=== PATIENT | female | born 1960 | race Caucasian/White ===

== ENCOUNTER 2020-07-24 11:34 | Inpatient (IN) ==
[2020-07-24] MEDS: Gabapentin 300 MG CAPSULE PO SCH ×2 (18:34→21:54)
[2020-07-24] MEDS ORDERED: Insulin DETEMIR 100 UNIT/ML per UNIT SUBQ ONE (21:00)
[2020-07-24] MEDS: Ibuprofen 800 MG TABLET PO PRN (21:52)
[2020-07-24] MEDS: Melatonin 3 MG TABLET PO SCH (21:53)
[2020-07-25 07:00] LABS: Basophils % 0.6 %; Eosinophils # 0.2 K/mcL (0.0-0.6); Eosinophils % 3.4 %; Hematocrit 41.5 % (35.3-44.9); Hemoglobin 13.4 g/dL (11.5-15.4); Immature Granulocytes % 1.6 % (0-4); Lymphocytes # 1.7 K/mcL (0.6-4.6); Lymphocytes % 24.3 %; Mean Corpuscular HGB Conc 32.3 g/dL (31.6-35.5); Mean Corpuscular Volume 92.8 fL (83.0-100.0); Mean Platelet Volume 9.9 fL (9.4-12.4); Monocytes # 0.3 K/mcL (0.0-1.3); Monocytes % 4.4 %; Neutrophils # 4.5 K/mcL (1.6-8.9); Platelet Count 257 K/mcL (140-400); Red Blood Count 4.47 M/mcL (3.82-4.97); Red Cell Distribution Width 14.3 % (11.5-14.5); Segmented Neutrophils % 65.7 %; White Blood Count 6.8 K/mcL (4.3-11.1)
[2020-07-25 07:20] LABS: BUN/Creatinine Ratio 23 (6-26); Blood Urea Nitrogen 18 mg/dL (8-23); Calcium 8.8 mg/dL (8.6-10.3); Carbon Dioxide 31 mEq/L (23-29); Chloride 101 mEq/L (98-107); Glucose 128 mg/dL (70-105); Osmolality,Calculated 292 (280-300); Potassium 4.1 mEq/L (3.5-5.1); Sodium 139 mEq/L (136-145); eGFR For African Americans > 60 (> 60); eGFR For Non-African Americans > 60 (> 60)
[2020-07-25] MEDS ORDERED: predniSONE 20 MG TABLET PO SCH (09:00)
[2020-07-25] MEDS: Gabapentin 300 MG CAPSULE PO SCH ×3 (09:36→20:56)
[2020-07-25] MEDS: amLODIPine 5 MG TABLET PO SCH (09:37)
[2020-07-25] MEDS: Cyanocobalamin (B-12) 1,000 MCG TABLET PO SCH (09:37)
[2020-07-25] MEDS: Furosemide 40 MG TABLET PO SCH (09:37)
[2020-07-25] MEDS: lisinopriL 20 MG TABLET PO SCH (09:37)
[2020-07-25] MEDS: *HR* Metformin 500 MG TABLET PO SCH ×2 (09:37→20:55)
[2020-07-25] MEDS: Cholecalciferol (D-3) 1,000 UNIT (25MCG) TABLET PO SCH (09:38)
[2020-07-25] MEDS: Aspirin Enteric Coated 81 MG Tablet PO SCH (09:38)
[2020-07-25] MEDS: Loratadine 10 MG TABLET PO SCH (09:38)
[2020-07-25] MEDS: FLUoxetine 20 MG CAPSULE PO SCH (09:39)
[2020-07-25] MEDS: Fluticasone Propionate Nasal 50 MCG/SPRAY BOTTLE NS SCH (09:39)
[2020-07-25] MEDS: Insulin DETEMIR 100 UNIT/ML X5UNITS SUBQ SCH ×2 (09:41→21:07)
[2020-07-25] MEDS: Ibuprofen 800 MG TABLET PO PRN (09:41)
[2020-07-25] MEDS ORDERED: *HR* Dextrose 50 % in Water (Vial) 50 ML VIAL IVP PRN (12:18)
[2020-07-25] MEDS ORDERED: Dextrose Gel 15 GM/37.5 ML TUBE PO PRN ×2 (12:18)
[2020-07-25] MEDS ORDERED: D5% in Water 1,000 ML IVC PRN (12:18)
[2020-07-25] MEDS: Insulin LISPRO 300 UNITS/3 ML VIAL SUBQ SCH ×3 (12:34→21:19)
[2020-07-25] MEDS: Nicotine 21 MG PATCH.TD24 TD SCH (16:44)
[2020-07-25] MEDS: Melatonin 3 MG TABLET PO SCH (20:53)
[2020-07-25] MEDS: QUEtiapine Fumarate 25 MG TABLET PO PRN (20:54)
[2020-07-26] MEDS: Ibuprofen 800 MG TABLET PO PRN (08:57)
[2020-07-26] MEDS: FLUoxetine 20 MG CAPSULE PO SCH (08:57)
[2020-07-26] MEDS: Loratadine 10 MG TABLET PO SCH (08:57)
[2020-07-26] MEDS: Cholecalciferol (D-3) 1,000 UNIT (25MCG) TABLET PO SCH (08:57)
[2020-07-26] MEDS: Cyanocobalamin (B-12) 1,000 MCG TABLET PO SCH (08:58)
[2020-07-26] MEDS: Furosemide 40 MG TABLET PO SCH (08:58)
[2020-07-26] MEDS: Aspirin Enteric Coated 81 MG Tablet PO SCH (08:58)
[2020-07-26] MEDS: *HR* Metformin 500 MG TABLET PO SCH ×2 (08:58→21:55)
[2020-07-26] MEDS: Gabapentin 300 MG CAPSULE PO SCH ×3 (08:58→21:54)
[2020-07-26] MEDS: amLODIPine 5 MG TABLET PO SCH (08:58)
[2020-07-26] MEDS: lisinopriL 20 MG TABLET PO SCH (08:58)
[2020-07-26] MEDS: Fluticasone Propionate Nasal 50 MCG/SPRAY BOTTLE NS SCH (08:59)
[2020-07-26] MEDS: Insulin LISPRO 300 UNITS/3 ML VIAL SUBQ SCH ×4 (08:59→22:07)
[2020-07-26] MEDS: Insulin DETEMIR 100 UNIT/ML X5UNITS SUBQ SCH ×2 (09:02→21:56)
[2020-07-26] MEDS: Nicotine 21 MG PATCH.TD24 TD SCH (09:18)
[2020-07-26] MEDS: Melatonin 3 MG TABLET PO SCH (21:54)
[2020-07-26] MEDS: QUEtiapine Fumarate 25 MG TABLET PO PRN (21:55)
[2020-07-27] MEDS: Ibuprofen 800 MG TABLET PO PRN (04:23)
[2020-07-27] MEDS: Insulin LISPRO 300 UNITS/3 ML VIAL SUBQ SCH ×4 (08:08→20:36)
[2020-07-27] MEDS: *HR* Metformin 500 MG TABLET PO SCH ×2 (08:09→17:39)
[2020-07-27] MEDS: Fluticasone Propionate Nasal 50 MCG/SPRAY BOTTLE NS SCH (08:09)
[2020-07-27] MEDS: Loratadine 10 MG TABLET PO SCH (08:10)
[2020-07-27] MEDS: Aspirin Enteric Coated 81 MG Tablet PO SCH (08:10)
[2020-07-27] MEDS: FLUoxetine 20 MG CAPSULE PO SCH (08:10)
[2020-07-27] MEDS: Cholecalciferol (D-3) 1,000 UNIT (25MCG) TABLET PO SCH (08:10)
[2020-07-27] MEDS: amLODIPine 5 MG TABLET PO SCH (08:10)
[2020-07-27] MEDS: lisinopriL 20 MG TABLET PO SCH (08:10)
[2020-07-27] MEDS: Cyanocobalamin (B-12) 1,000 MCG TABLET PO SCH (08:10)
[2020-07-27] MEDS: Gabapentin 300 MG CAPSULE PO SCH ×3 (08:10→20:37)
[2020-07-27] MEDS: Furosemide 40 MG TABLET PO SCH (08:10)
[2020-07-27] MEDS: Insulin DETEMIR 100 UNIT/ML X5UNITS SUBQ SCH ×2 (08:12→20:38)
[2020-07-27] MEDS: Nicotine 21 MG PATCH.TD24 TD SCH (08:14)
[2020-07-27] MEDS: (Dulaglutide [Trulicity] 1.5 MG/0.5 ML Pen.Injctr) SQ SCH (08:25)
[2020-07-27] MEDS: polyethylene glycoL 3350 17 GM POWD.PACK PO PRN (17:43)
[2020-07-27] MEDS: QUEtiapine Fumarate 25 MG TABLET PO PRN (20:37)
[2020-07-27] MEDS: Melatonin 3 MG TABLET PO SCH (20:37)
[2020-07-28] MEDS: Ibuprofen 800 MG TABLET PO PRN ×2 (06:31→20:43)
[2020-07-28] MEDS: Insulin LISPRO 300 UNITS/3 ML VIAL SUBQ SCH ×4 (08:03→20:32)
[2020-07-28] MEDS: Loratadine 10 MG TABLET PO SCH (08:04)
[2020-07-28] MEDS: *HR* Metformin 500 MG TABLET PO SCH ×2 (08:04→16:09)
[2020-07-28] MEDS: Gabapentin 300 MG CAPSULE PO SCH ×3 (08:04→20:35)
[2020-07-28] MEDS: Cyanocobalamin (B-12) 1,000 MCG TABLET PO SCH (08:05)
[2020-07-28] MEDS: Aspirin Enteric Coated 81 MG Tablet PO SCH (08:05)
[2020-07-28] MEDS: amLODIPine 5 MG TABLET PO SCH (08:05)
[2020-07-28] MEDS: Furosemide 40 MG TABLET PO SCH (08:05)
[2020-07-28] MEDS: FLUoxetine 20 MG CAPSULE PO SCH (08:05)
[2020-07-28] MEDS: Cholecalciferol (D-3) 1,000 UNIT (25MCG) TABLET PO SCH (08:05)
[2020-07-28] MEDS: lisinopriL 20 MG TABLET PO SCH (08:05)
[2020-07-28] MEDS: Fluticasone Propionate Nasal 50 MCG/SPRAY BOTTLE NS SCH (08:06)
[2020-07-28] MEDS: Insulin DETEMIR 100 UNIT/ML X5UNITS SUBQ SCH ×2 (08:45→20:36)
[2020-07-28] MEDS: polyethylene glycoL 3350 17 GM POWD.PACK PO PRN (14:32)
[2020-07-28] MEDS: QUEtiapine Fumarate 25 MG TABLET PO PRN (20:36)
[2020-07-28] MEDS: Melatonin 3 MG TABLET PO SCH (20:36)
[2020-07-29] MEDS: Cyanocobalamin (B-12) 1,000 MCG TABLET PO SCH (08:51)
[2020-07-29] MEDS: *HR* Metformin 500 MG TABLET PO SCH ×2 (08:51→16:56)
[2020-07-29] MEDS: Cholecalciferol (D-3) 1,000 UNIT (25MCG) TABLET PO SCH (08:51)
[2020-07-29] MEDS: Aspirin Enteric Coated 81 MG Tablet PO SCH (08:51)
[2020-07-29] MEDS: Gabapentin 300 MG CAPSULE PO SCH ×3 (08:52→21:23)
[2020-07-29] MEDS: FLUoxetine 20 MG CAPSULE PO SCH (08:53)
[2020-07-29] MEDS: amLODIPine 5 MG TABLET PO SCH (08:54)
[2020-07-29] MEDS: Fluticasone Propionate Nasal 50 MCG/SPRAY BOTTLE NS SCH (08:54)
[2020-07-29] MEDS: Furosemide 40 MG TABLET PO SCH (08:54)
[2020-07-29] MEDS: lisinopriL 20 MG TABLET PO SCH (08:55)
[2020-07-29] MEDS: Insulin LISPRO 300 UNITS/3 ML VIAL SUBQ SCH ×4 (08:57→21:14)
[2020-07-29] MEDS: Insulin DETEMIR 100 UNIT/ML X5UNITS SUBQ SCH ×2 (08:58→21:25)
[2020-07-29] MEDS: Loratadine 10 MG TABLET PO SCH (09:18)
[2020-07-29] MEDS: Ibuprofen 800 MG TABLET PO PRN (15:53)
[2020-07-29] MEDS ORDERED: Sennosides/Docusate Sodium TABLET PO PRN (18:12)
[2020-07-29] MEDS: QUEtiapine Fumarate 25 MG TABLET PO PRN (21:22)
[2020-07-29] MEDS: Melatonin 3 MG TABLET PO SCH (21:23)
[2020-07-29] MEDS: Sennosides/Docusate Sodium TABLET PO SCH (21:23)
[2020-07-30] MEDS: Sennosides/Docusate Sodium TABLET PO SCH ×2 (08:06→21:35)
[2020-07-30] MEDS: Loratadine 10 MG TABLET PO SCH (08:07)
[2020-07-30] MEDS: *HR* Metformin 500 MG TABLET PO SCH ×2 (08:07→16:55)
[2020-07-30] MEDS: Aspirin Enteric Coated 81 MG Tablet PO SCH (08:07)
[2020-07-30] MEDS: FLUoxetine 20 MG CAPSULE PO SCH (08:07)
[2020-07-30] MEDS: lisinopriL 20 MG TABLET PO SCH (08:08)
[2020-07-30] MEDS: Furosemide 40 MG TABLET PO SCH (08:08)
[2020-07-30] MEDS: Gabapentin 300 MG CAPSULE PO SCH ×3 (08:08→21:36)
[2020-07-30] MEDS: Cholecalciferol (D-3) 1,000 UNIT (25MCG) TABLET PO SCH (08:08)
[2020-07-30] MEDS: amLODIPine 5 MG TABLET PO SCH (08:08)
[2020-07-30] MEDS: Cyanocobalamin (B-12) 1,000 MCG TABLET PO SCH (08:09)
[2020-07-30] MEDS: Fluticasone Propionate Nasal 50 MCG/SPRAY BOTTLE NS SCH (08:10)
[2020-07-30] MEDS: Insulin DETEMIR 100 UNIT/ML X5UNITS SUBQ SCH ×2 (08:12→21:43)
[2020-07-30] MEDS: Insulin LISPRO 300 UNITS/3 ML VIAL SUBQ SCH ×4 (08:13→21:37)
[2020-07-30] MEDS: Ibuprofen 800 MG TABLET PO PRN (09:43)
[2020-07-30] MEDS: Melatonin 3 MG TABLET PO SCH (21:36)
[2020-07-30] MEDS: QUEtiapine Fumarate 25 MG TABLET PO PRN (21:36)
[2020-07-31] MEDS: Ibuprofen 800 MG TABLET PO PRN ×2 (03:14→12:03)
[2020-07-31] MEDS: Insulin LISPRO 300 UNITS/3 ML VIAL SUBQ SCH ×4 (07:07→21:28)
[2020-07-31] MEDS: lisinopriL 20 MG TABLET PO SCH (08:34)
[2020-07-31] MEDS: Sennosides/Docusate Sodium TABLET PO SCH ×2 (08:35→21:33)
[2020-07-31] MEDS: Cyanocobalamin (B-12) 1,000 MCG TABLET PO SCH (08:35)
[2020-07-31] MEDS: FLUoxetine 20 MG CAPSULE PO SCH (08:35)
[2020-07-31] MEDS: Cholecalciferol (D-3) 1,000 UNIT (25MCG) TABLET PO SCH (08:35)
[2020-07-31] MEDS: amLODIPine 5 MG TABLET PO SCH (08:35)
[2020-07-31] MEDS: Furosemide 40 MG TABLET PO SCH (08:35)
[2020-07-31] MEDS: *HR* Metformin 500 MG TABLET PO SCH ×2 (08:35→17:04)
[2020-07-31] MEDS: Fluticasone Propionate Nasal 50 MCG/SPRAY BOTTLE NS SCH (08:36)
[2020-07-31] MEDS: Aspirin Enteric Coated 81 MG Tablet PO SCH (08:36)
[2020-07-31] MEDS: Loratadine 10 MG TABLET PO SCH (08:36)
[2020-07-31] MEDS: Gabapentin 300 MG CAPSULE PO SCH ×3 (08:36→21:21)
[2020-07-31] MEDS: Insulin DETEMIR 100 UNIT/ML X5UNITS SUBQ SCH ×2 (08:43→21:27)
[2020-07-31] MEDS: Melatonin 3 MG TABLET PO SCH (21:21)
[2020-07-31] MEDS: QUEtiapine Fumarate 25 MG TABLET PO PRN (21:22)
[2020-08-01] MEDS: Ibuprofen 800 MG TABLET PO PRN (00:12)
[2020-08-01] MEDS ORDERED: *HR* HYDROcodone/Acet 5/325 mg TABLET PO ONE (04:17)
[2020-08-01] MEDS: Insulin LISPRO 300 UNITS/3 ML VIAL SUBQ SCH ×4 (07:50→20:40)
[2020-08-01] MEDS: FLUoxetine 20 MG CAPSULE PO SCH (08:22)
[2020-08-01] MEDS: Sennosides/Docusate Sodium TABLET PO SCH ×2 (08:23→20:51)
[2020-08-01] MEDS: *HR* Metformin 500 MG TABLET PO SCH ×2 (08:23→16:41)
[2020-08-01] MEDS: Furosemide 40 MG TABLET PO SCH (08:23)
[2020-08-01] MEDS: Aspirin Enteric Coated 81 MG Tablet PO SCH (08:23)
[2020-08-01] MEDS: Cholecalciferol (D-3) 1,000 UNIT (25MCG) TABLET PO SCH (08:23)
[2020-08-01] MEDS: lisinopriL 20 MG TABLET PO SCH (08:23)
[2020-08-01] MEDS: Loratadine 10 MG TABLET PO SCH (08:24)
[2020-08-01] MEDS: Cyanocobalamin (B-12) 1,000 MCG TABLET PO SCH (08:24)
[2020-08-01] MEDS: amLODIPine 5 MG TABLET PO SCH (08:24)
[2020-08-01] MEDS: Insulin DETEMIR 100 UNIT/ML X5UNITS SUBQ SCH ×2 (08:24→20:53)
[2020-08-01] MEDS: Gabapentin 300 MG CAPSULE PO SCH ×3 (08:24→20:51)
[2020-08-01] MEDS: Fluticasone Propionate Nasal 50 MCG/SPRAY BOTTLE NS SCH (08:25)
[2020-08-01] MEDS: Melatonin 3 MG TABLET PO SCH (20:51)
[2020-08-02] MEDS: Ibuprofen 800 MG TABLET PO PRN (02:55)
[2020-08-02] MEDS: lisinopriL 20 MG TABLET PO SCH (07:36)
[2020-08-02] MEDS: Aspirin Enteric Coated 81 MG Tablet PO SCH (07:36)
[2020-08-02] MEDS: Sennosides/Docusate Sodium TABLET PO SCH ×2 (07:36→20:43)
[2020-08-02] MEDS: Loratadine 10 MG TABLET PO SCH (07:36)
[2020-08-02] MEDS: Gabapentin 300 MG CAPSULE PO SCH ×3 (07:36→20:43)
[2020-08-02] MEDS: Cholecalciferol (D-3) 1,000 UNIT (25MCG) TABLET PO SCH (07:36)
[2020-08-02] MEDS: amLODIPine 5 MG TABLET PO SCH (07:36)
[2020-08-02] MEDS: FLUoxetine 20 MG CAPSULE PO SCH (07:36)
[2020-08-02] MEDS: *HR* Metformin 500 MG TABLET PO SCH ×2 (07:36→16:09)
[2020-08-02] MEDS: Insulin LISPRO 300 UNITS/3 ML VIAL SUBQ SCH ×4 (07:37→20:43)
[2020-08-02] MEDS: Cyanocobalamin (B-12) 1,000 MCG TABLET PO SCH (07:37)
[2020-08-02] MEDS: Fluticasone Propionate Nasal 50 MCG/SPRAY BOTTLE NS SCH (07:37)
[2020-08-02] MEDS: Furosemide 40 MG TABLET PO SCH (07:37)
[2020-08-02] MEDS: Insulin DETEMIR 100 UNIT/ML X5UNITS SUBQ SCH ×2 (08:44→20:43)
[2020-08-02] MEDS: Melatonin 3 MG TABLET PO SCH (20:44)
[2020-08-03] MEDS: Ibuprofen 800 MG TABLET PO PRN ×2 (01:43→20:01)
[2020-08-03] MEDS ORDERED: *HR* HYDROcodone/Acet 5/325 mg TABLET PO ONE (03:14)
[2020-08-03] MEDS: Aspirin Enteric Coated 81 MG Tablet PO SCH (07:47)
[2020-08-03] MEDS: Cholecalciferol (D-3) 1,000 UNIT (25MCG) TABLET PO SCH (07:47)
[2020-08-03] MEDS: FLUoxetine 20 MG CAPSULE PO SCH (07:48)
[2020-08-03] MEDS: *HR* Metformin 500 MG TABLET PO SCH ×2 (07:48→16:24)
[2020-08-03] MEDS: amLODIPine 5 MG TABLET PO SCH (07:48)
[2020-08-03] MEDS: Loratadine 10 MG TABLET PO SCH (07:48)
[2020-08-03] MEDS: lisinopriL 20 MG TABLET PO SCH (07:48)
[2020-08-03] MEDS: Gabapentin 300 MG CAPSULE PO SCH ×3 (07:48→20:02)
[2020-08-03] MEDS: Sennosides/Docusate Sodium TABLET PO SCH ×2 (07:48→20:02)
[2020-08-03] MEDS: Furosemide 40 MG TABLET PO SCH (07:48)
[2020-08-03] MEDS: Cyanocobalamin (B-12) 1,000 MCG TABLET PO SCH (07:48)
[2020-08-03] MEDS: Fluticasone Propionate Nasal 50 MCG/SPRAY BOTTLE NS SCH (07:49)
[2020-08-03] MEDS: Insulin LISPRO 300 UNITS/3 ML VIAL SUBQ SCH ×4 (07:49→20:08)
[2020-08-03] MEDS: (Dulaglutide [Trulicity] 1.5 MG/0.5 ML Pen.Injctr) SQ SCH (07:56)
[2020-08-03] MEDS: Insulin DETEMIR 100 UNIT/ML X5UNITS SUBQ SCH ×2 (08:16→20:10)
[2020-08-03] MEDS: Ondansetron ODT 4 MG TAB.RAPDIS SL PRN (11:40)
[2020-08-03] MEDS: Melatonin 3 MG TABLET PO SCH (20:02)
[2020-08-04] MEDS: Insulin LISPRO 300 UNITS/3 ML VIAL SUBQ SCH ×4 (08:20→22:13)
[2020-08-04] MEDS: FLUoxetine 20 MG CAPSULE PO SCH (08:20)
[2020-08-04] MEDS: *HR* Metformin 500 MG TABLET PO SCH ×2 (08:21→16:48)
[2020-08-04] MEDS: Cholecalciferol (D-3) 1,000 UNIT (25MCG) TABLET PO SCH (08:21)
[2020-08-04] MEDS: Sennosides/Docusate Sodium TABLET PO SCH ×2 (08:21→20:53)
[2020-08-04] MEDS: Cyanocobalamin (B-12) 1,000 MCG TABLET PO SCH (08:21)
[2020-08-04] MEDS: amLODIPine 5 MG TABLET PO SCH (08:21)
[2020-08-04] MEDS: Loratadine 10 MG TABLET PO SCH (08:22)
[2020-08-04] MEDS: Fluticasone Propionate Nasal 50 MCG/SPRAY BOTTLE NS SCH (08:22)
[2020-08-04] MEDS: Furosemide 40 MG TABLET PO SCH (08:22)
[2020-08-04] MEDS: Aspirin Enteric Coated 81 MG Tablet PO SCH (08:22)
[2020-08-04] MEDS: lisinopriL 20 MG TABLET PO SCH (08:22)
[2020-08-04] MEDS: Gabapentin 300 MG CAPSULE PO SCH ×3 (08:22→20:53)
[2020-08-04] MEDS: Insulin DETEMIR 100 UNIT/ML X5UNITS SUBQ SCH ×2 (09:05→20:53)
[2020-08-04] MEDS: Ibuprofen 800 MG TABLET PO PRN (20:53)
[2020-08-04] MEDS: Melatonin 3 MG TABLET PO SCH (20:53)
[2020-08-05] MEDS: Ibuprofen 800 MG TABLET PO PRN ×2 (05:13→20:34)
[2020-08-05 06:08] LABS: Basophils % 0.4 %; Eosinophils # 0.3 K/mcL (0.0-0.6); Eosinophils % 3.3 %; Hematocrit 39.7 % (35.3-44.9); Immature Granulocytes % 0.3 % (0-4); Lymphocytes % 32.6 %; Mean Corpuscular HGB Conc 32.7 g/dL (31.6-35.5); Mean Corpuscular Hemoglobin 30.4 pg (28.0-33.3); Mean Platelet Volume 10.2 fL (9.4-12.4); Monocytes # 0.4 K/mcL (0.0-1.3); Monocytes % 3.9 %; Neutrophils # 5.4 K/mcL (1.6-8.9); Platelet Count 300 K/mcL (140-400); Red Blood Count 4.27 M/mcL (3.82-4.97); Red Cell Distribution Width 14.7 % (11.5-14.5); Segmented Neutrophils % 59.5 %; White Blood Count 9.1 K/mcL (4.3-11.1)
[2020-08-05 06:25] LABS: Calcium 9.3 mg/dL (8.6-10.3); Potassium 4.2 mEq/L (3.5-5.1)
[2020-08-05] MEDS: FLUoxetine 20 MG CAPSULE PO SCH (08:29)
[2020-08-05] MEDS: Sennosides/Docusate Sodium TABLET PO SCH ×2 (08:29→20:25)
[2020-08-05] MEDS: amLODIPine 5 MG TABLET PO SCH (08:29)
[2020-08-05] MEDS: Gabapentin 300 MG CAPSULE PO SCH ×3 (08:29→20:26)
[2020-08-05] MEDS: Loratadine 10 MG TABLET PO SCH (08:29)
[2020-08-05] MEDS: Cyanocobalamin (B-12) 1,000 MCG TABLET PO SCH (08:29)
[2020-08-05] MEDS: Aspirin Enteric Coated 81 MG Tablet PO SCH (08:29)
[2020-08-05] MEDS: *HR* Metformin 500 MG TABLET PO SCH ×2 (08:30→16:32)
[2020-08-05] MEDS: Fluticasone Propionate Nasal 50 MCG/SPRAY BOTTLE NS SCH (08:30)
[2020-08-05] MEDS: Insulin DETEMIR 100 UNIT/ML X5UNITS SUBQ SCH ×2 (08:30→20:26)
[2020-08-05] MEDS: lisinopriL 20 MG TABLET PO SCH (08:30)
[2020-08-05] MEDS: Cholecalciferol (D-3) 1,000 UNIT (25MCG) TABLET PO SCH (08:30)
[2020-08-05] MEDS: Furosemide 40 MG TABLET PO SCH (08:30)
[2020-08-05] MEDS: Insulin LISPRO 300 UNITS/3 ML VIAL SUBQ SCH ×4 (08:31→20:26)
[2020-08-05] MEDS: Melatonin 3 MG TABLET PO SCH (20:25)
[2020-08-06] MEDS: Insulin LISPRO 300 UNITS/3 ML VIAL SUBQ SCH ×4 (07:49→20:38)
[2020-08-06] MEDS: Ibuprofen 800 MG TABLET PO PRN ×2 (08:02→20:39)
[2020-08-06] MEDS: Furosemide 40 MG TABLET PO SCH (08:02)
[2020-08-06] MEDS: Sennosides/Docusate Sodium TABLET PO SCH ×2 (08:02→20:39)
[2020-08-06] MEDS: Gabapentin 300 MG CAPSULE PO SCH ×3 (08:02→20:39)
[2020-08-06] MEDS: Aspirin Enteric Coated 81 MG Tablet PO SCH (08:02)
[2020-08-06] MEDS: lisinopriL 20 MG TABLET PO SCH (08:02)
[2020-08-06] MEDS: Loratadine 10 MG TABLET PO SCH (08:03)
[2020-08-06] MEDS: Cholecalciferol (D-3) 1,000 UNIT (25MCG) TABLET PO SCH (08:03)
[2020-08-06] MEDS: Insulin DETEMIR 100 UNIT/ML X5UNITS SUBQ SCH ×2 (08:03→20:38)
[2020-08-06] MEDS: *HR* Metformin 500 MG TABLET PO SCH ×2 (08:03→17:11)
[2020-08-06] MEDS: Cyanocobalamin (B-12) 1,000 MCG TABLET PO SCH (08:03)
[2020-08-06] MEDS: FLUoxetine 20 MG CAPSULE PO SCH (08:03)
[2020-08-06] MEDS: amLODIPine 5 MG TABLET PO SCH (08:03)
[2020-08-06] MEDS: Fluticasone Propionate Nasal 50 MCG/SPRAY BOTTLE NS SCH (08:03)
[2020-08-06] MEDS: Melatonin 3 MG TABLET PO SCH (20:40)
[2020-08-07] MEDS: Cholecalciferol (D-3) 1,000 UNIT (25MCG) TABLET PO SCH (08:27)
[2020-08-07] MEDS: Sennosides/Docusate Sodium TABLET PO SCH ×2 (08:27→20:25)
[2020-08-07] MEDS: Aspirin Enteric Coated 81 MG Tablet PO SCH (08:27)
[2020-08-07] MEDS: Cyanocobalamin (B-12) 1,000 MCG TABLET PO SCH (08:27)
[2020-08-07] MEDS: Loratadine 10 MG TABLET PO SCH (08:27)
[2020-08-07] MEDS: lisinopriL 20 MG TABLET PO SCH (08:27)
[2020-08-07] MEDS: amLODIPine 5 MG TABLET PO SCH (08:27)
[2020-08-07] MEDS: Gabapentin 300 MG CAPSULE PO SCH ×3 (08:27→20:25)
[2020-08-07] MEDS: FLUoxetine 20 MG CAPSULE PO SCH (08:27)
[2020-08-07] MEDS: Furosemide 40 MG TABLET PO SCH (08:27)
[2020-08-07] MEDS: Insulin LISPRO 300 UNITS/3 ML VIAL SUBQ SCH ×4 (08:28→20:27)
[2020-08-07] MEDS: Fluticasone Propionate Nasal 50 MCG/SPRAY BOTTLE NS SCH (08:28)
[2020-08-07] MEDS: *HR* Metformin 500 MG TABLET PO SCH ×2 (08:35→16:16)
[2020-08-07] MEDS: Insulin DETEMIR 100 UNIT/ML X5UNITS SUBQ SCH ×2 (08:35→20:25)
[2020-08-07] MEDS ORDERED: *HR* LORazepam 0.5 MG TABLET PO ONE (10:52)
[2020-08-07] MEDS: Ibuprofen 800 MG TABLET PO PRN (20:25)
[2020-08-07] MEDS: Melatonin 3 MG TABLET PO SCH (20:25)
[2020-08-08] MEDS: Insulin LISPRO 300 UNITS/3 ML VIAL SUBQ SCH ×4 (07:39→20:54)
[2020-08-08] MEDS: Insulin DETEMIR 100 UNIT/ML X5UNITS SUBQ SCH ×2 (09:42→20:54)
[2020-08-08] MEDS: Furosemide 40 MG TABLET PO SCH (09:42)
[2020-08-08] MEDS: Cholecalciferol (D-3) 1,000 UNIT (25MCG) TABLET PO SCH (09:43)
[2020-08-08] MEDS: Sennosides/Docusate Sodium TABLET PO SCH ×2 (09:43→20:50)
[2020-08-08] MEDS: FLUoxetine 20 MG CAPSULE PO SCH (09:43)
[2020-08-08] MEDS: Loratadine 10 MG TABLET PO SCH (09:43)
[2020-08-08] MEDS: lisinopriL 20 MG TABLET PO SCH (09:43)
[2020-08-08] MEDS: amLODIPine 5 MG TABLET PO SCH (09:43)
[2020-08-08] MEDS: *HR* Metformin 500 MG TABLET PO SCH ×2 (09:44→17:24)
[2020-08-08] MEDS: Ibuprofen 800 MG TABLET PO PRN ×2 (09:44→20:51)
[2020-08-08] MEDS: Aspirin Enteric Coated 81 MG Tablet PO SCH (09:44)
[2020-08-08] MEDS: Cyanocobalamin (B-12) 1,000 MCG TABLET PO SCH (09:44)
[2020-08-08] MEDS: Gabapentin 300 MG CAPSULE PO SCH ×3 (09:44→20:50)
[2020-08-08] MEDS: Fluticasone Propionate Nasal 50 MCG/SPRAY BOTTLE NS SCH (09:44)
[2020-08-08] MEDS: Melatonin 3 MG TABLET PO SCH (20:50)
[2020-08-08] MEDS: QUEtiapine Fumarate 25 MG TABLET PO PRN (20:51)
[2020-08-09 05:43] LABS: Hematocrit 35.1 % (35.3-44.9); Hemoglobin 11.5 g/dL (11.5-15.4); Mean Corpuscular HGB Conc 32.8 g/dL (31.6-35.5); Mean Corpuscular Hemoglobin 30.5 pg (28.0-33.3); Mean Corpuscular Volume 93.1 fL (83.0-100.0); Mean Platelet Volume 10.5 fL (9.4-12.4); Platelet Count 264 K/mcL (140-400); Red Blood Count 3.77 M/mcL (3.82-4.97); Red Cell Distribution Width 14.5 % (11.5-14.5); White Blood Count 8.3 K/mcL (4.3-11.1)
[2020-08-09 07:10] LABS: Calcium 8.8 mg/dL (8.6-10.3); Potassium 4.2 mEq/L (3.5-5.1)
[2020-08-09] MEDS: Insulin LISPRO 300 UNITS/3 ML VIAL SUBQ SCH ×4 (07:35→21:18)
[2020-08-09] MEDS: Fluticasone Propionate Nasal 50 MCG/SPRAY BOTTLE NS SCH (08:47)
[2020-08-09] MEDS: Furosemide 40 MG TABLET PO SCH (08:48)
[2020-08-09] MEDS: Loratadine 10 MG TABLET PO SCH (08:48)
[2020-08-09] MEDS: lisinopriL 20 MG TABLET PO SCH (08:48)
[2020-08-09] MEDS: Aspirin Enteric Coated 81 MG Tablet PO SCH (08:48)
[2020-08-09] MEDS: *HR* Metformin 500 MG TABLET PO SCH ×2 (08:48→16:49)
[2020-08-09] MEDS: Cyanocobalamin (B-12) 1,000 MCG TABLET PO SCH (08:48)
[2020-08-09] MEDS: Cholecalciferol (D-3) 1,000 UNIT (25MCG) TABLET PO SCH (08:48)
[2020-08-09] MEDS: amLODIPine 5 MG TABLET PO SCH (08:48)
[2020-08-09] MEDS: FLUoxetine 20 MG CAPSULE PO SCH (08:48)
[2020-08-09] MEDS: Sennosides/Docusate Sodium TABLET PO SCH ×2 (08:49→21:17)
[2020-08-09] MEDS: Gabapentin 300 MG CAPSULE PO SCH ×3 (08:49→21:17)
[2020-08-09] MEDS: Ibuprofen 800 MG TABLET PO PRN ×2 (09:00→21:17)
[2020-08-09] MEDS: Insulin DETEMIR 100 UNIT/ML X5UNITS SUBQ SCH ×2 (10:02→21:18)
[2020-08-09] MEDS: Melatonin 3 MG TABLET PO SCH (21:17)
[2020-08-10] MEDS: Trolamine Salicylate/Aloe Vera 85 APPL/85 GM TUBE TP PRN (02:22)
[2020-08-10] MEDS: amLODIPine 5 MG TABLET PO SCH (08:24)
[2020-08-10] MEDS: Sennosides/Docusate Sodium TABLET PO SCH ×2 (08:24→20:47)
[2020-08-10] MEDS: *HR* Metformin 500 MG TABLET PO SCH ×2 (08:25→16:07)
[2020-08-10] MEDS: lisinopriL 20 MG TABLET PO SCH (08:25)
[2020-08-10] MEDS: FLUoxetine 20 MG CAPSULE PO SCH (08:25)
[2020-08-10] MEDS: Furosemide 40 MG TABLET PO SCH (08:25)
[2020-08-10] MEDS: Aspirin Enteric Coated 81 MG Tablet PO SCH (08:25)
[2020-08-10] MEDS: Cyanocobalamin (B-12) 1,000 MCG TABLET PO SCH (08:25)
[2020-08-10] MEDS: Loratadine 10 MG TABLET PO SCH (08:25)
[2020-08-10] MEDS: Cholecalciferol (D-3) 1,000 UNIT (25MCG) TABLET PO SCH (08:26)
[2020-08-10] MEDS: Fluticasone Propionate Nasal 50 MCG/SPRAY BOTTLE NS SCH (08:26)
[2020-08-10] MEDS: Insulin DETEMIR 100 UNIT/ML X5UNITS SUBQ SCH ×2 (08:26→20:49)
[2020-08-10] MEDS: Gabapentin 300 MG CAPSULE PO SCH ×3 (08:26→20:48)
[2020-08-10] MEDS: Ibuprofen 800 MG TABLET PO PRN ×2 (08:26→20:48)
[2020-08-10] MEDS: Insulin LISPRO 300 UNITS/3 ML VIAL SUBQ SCH ×4 (08:27→20:40)
[2020-08-10] MEDS: (Dulaglutide [Trulicity] 1.5 MG/0.5 ML Pen.Injctr) SQ SCH (08:35)
[2020-08-10] MEDS: Melatonin 3 MG TABLET PO SCH (20:48)
[2020-08-10] MEDS: QUEtiapine Fumarate 25 MG TABLET PO PRN (20:48)
[2020-08-11] MEDS: Ibuprofen 800 MG TABLET PO PRN ×2 (05:36→16:03)
[2020-08-11] MEDS: Trolamine Salicylate/Aloe Vera 85 APPL/85 GM TUBE TP PRN (05:38)
[2020-08-11] MEDS: Insulin LISPRO 300 UNITS/3 ML VIAL SUBQ SCH ×4 (08:38→20:46)
[2020-08-11] MEDS: amLODIPine 5 MG TABLET PO SCH (09:10)
[2020-08-11] MEDS: Gabapentin 300 MG CAPSULE PO SCH ×3 (09:10→20:40)
[2020-08-11] MEDS: FLUoxetine 20 MG CAPSULE PO SCH (09:10)
[2020-08-11] MEDS: Cyanocobalamin (B-12) 1,000 MCG TABLET PO SCH (09:10)
[2020-08-11] MEDS: lisinopriL 20 MG TABLET PO SCH (09:10)
[2020-08-11] MEDS: Cholecalciferol (D-3) 1,000 UNIT (25MCG) TABLET PO SCH (09:10)
[2020-08-11] MEDS: Furosemide 40 MG TABLET PO SCH (09:11)
[2020-08-11] MEDS: Aspirin Enteric Coated 81 MG Tablet PO SCH (09:11)
[2020-08-11] MEDS: Loratadine 10 MG TABLET PO SCH (09:11)
[2020-08-11] MEDS: *HR* Metformin 500 MG TABLET PO SCH ×2 (09:11→16:03)
[2020-08-11] MEDS: Fluticasone Propionate Nasal 50 MCG/SPRAY BOTTLE NS SCH (09:11)
[2020-08-11] MEDS: Sennosides/Docusate Sodium TABLET PO SCH ×2 (09:11→20:40)
[2020-08-11] MEDS: Insulin DETEMIR 100 UNIT/ML X5UNITS SUBQ SCH ×2 (09:18→20:44)
[2020-08-11] MEDS: Melatonin 3 MG TABLET PO SCH (20:39)
[2020-08-12] MEDS: Ibuprofen 800 MG TABLET PO PRN ×3 (05:50→21:51)
[2020-08-12] MEDS: Insulin LISPRO 300 UNITS/3 ML VIAL SUBQ SCH ×4 (07:15→20:14)
[2020-08-12] MEDS: *HR* Metformin 500 MG TABLET PO SCH ×2 (07:59→15:47)
[2020-08-12] MEDS: Cholecalciferol (D-3) 1,000 UNIT (25MCG) TABLET PO SCH (08:00)
[2020-08-12] MEDS: Aspirin Enteric Coated 81 MG Tablet PO SCH (08:00)
[2020-08-12] MEDS: Gabapentin 300 MG CAPSULE PO SCH ×3 (08:00→20:24)
[2020-08-12] MEDS: Loratadine 10 MG TABLET PO SCH (08:00)
[2020-08-12] MEDS: Cyanocobalamin (B-12) 1,000 MCG TABLET PO SCH (08:00)
[2020-08-12] MEDS: Sennosides/Docusate Sodium TABLET PO SCH ×2 (08:01→20:24)
[2020-08-12] MEDS: Furosemide 40 MG TABLET PO SCH (08:01)
[2020-08-12] MEDS: FLUoxetine 20 MG CAPSULE PO SCH (08:01)
[2020-08-12] MEDS: amLODIPine 5 MG TABLET PO SCH (08:02)
[2020-08-12] MEDS: lisinopriL 20 MG TABLET PO SCH (08:02)
[2020-08-12] MEDS: Fluticasone Propionate Nasal 50 MCG/SPRAY BOTTLE NS SCH (08:03)
[2020-08-12] MEDS: Insulin DETEMIR 100 UNIT/ML X5UNITS SUBQ SCH ×2 (08:13→20:24)
[2020-08-12] MEDS: Melatonin 3 MG TABLET PO SCH (20:24)
[2020-08-13] MEDS: Ibuprofen 800 MG TABLET PO PRN ×2 (08:19→20:58)
[2020-08-13] MEDS: Aspirin Enteric Coated 81 MG Tablet PO SCH (08:19)
[2020-08-13] MEDS: Sennosides/Docusate Sodium TABLET PO SCH ×2 (08:19→19:37)
[2020-08-13] MEDS: lisinopriL 20 MG TABLET PO SCH (08:20)
[2020-08-13] MEDS: FLUoxetine 20 MG CAPSULE PO SCH (08:20)
[2020-08-13] MEDS: Loratadine 10 MG TABLET PO SCH (08:20)
[2020-08-13] MEDS: Furosemide 40 MG TABLET PO SCH (08:20)
[2020-08-13] MEDS: *HR* Metformin 500 MG TABLET PO SCH ×2 (08:20→17:00)
[2020-08-13] MEDS: Cholecalciferol (D-3) 1,000 UNIT (25MCG) TABLET PO SCH (08:20)
[2020-08-13] MEDS: Cyanocobalamin (B-12) 1,000 MCG TABLET PO SCH (08:20)
[2020-08-13] MEDS: amLODIPine 5 MG TABLET PO SCH (08:20)
[2020-08-13] MEDS: Gabapentin 300 MG CAPSULE PO SCH ×3 (08:21→19:37)
[2020-08-13] MEDS: Insulin DETEMIR 100 UNIT/ML X5UNITS SUBQ SCH ×2 (08:22→19:39)
[2020-08-13] MEDS: Fluticasone Propionate Nasal 50 MCG/SPRAY BOTTLE NS SCH (08:22)
[2020-08-13] MEDS: Insulin LISPRO 300 UNITS/3 ML VIAL SUBQ SCH ×4 (08:25→19:41)
[2020-08-13] MEDS: Melatonin 3 MG TABLET PO SCH (19:38)
[2020-08-14] MEDS: FLUoxetine 20 MG CAPSULE PO SCH (07:50)
[2020-08-14] MEDS: lisinopriL 20 MG TABLET PO SCH (07:51)
[2020-08-14] MEDS: Cholecalciferol (D-3) 1,000 UNIT (25MCG) TABLET PO SCH (07:51)
[2020-08-14] MEDS: Cyanocobalamin (B-12) 1,000 MCG TABLET PO SCH (07:51)
[2020-08-14] MEDS: *HR* Metformin 500 MG TABLET PO SCH ×2 (07:52→16:14)
[2020-08-14] MEDS: Aspirin Enteric Coated 81 MG Tablet PO SCH (07:52)
[2020-08-14] MEDS: amLODIPine 5 MG TABLET PO SCH (07:52)
[2020-08-14] MEDS: Furosemide 40 MG TABLET PO SCH (07:53)
[2020-08-14] MEDS: Loratadine 10 MG TABLET PO SCH (07:53)
[2020-08-14] MEDS: Gabapentin 300 MG CAPSULE PO SCH ×3 (07:53→20:33)
[2020-08-14] MEDS: Insulin LISPRO 300 UNITS/3 ML VIAL SUBQ SCH ×4 (07:54→20:35)
[2020-08-14] MEDS: Fluticasone Propionate Nasal 50 MCG/SPRAY BOTTLE NS SCH (07:54)
[2020-08-14] MEDS: Sennosides/Docusate Sodium TABLET PO SCH ×2 (07:54→20:33)
[2020-08-14] MEDS: Ondansetron ODT 4 MG TAB.RAPDIS SL PRN (10:30)
[2020-08-14] MEDS: Ibuprofen 800 MG TABLET PO PRN ×2 (10:30→20:33)
[2020-08-14] MEDS: Insulin DETEMIR 100 UNIT/ML X5UNITS SUBQ SCH ×2 (10:32→20:34)
[2020-08-14] MEDS: Melatonin 3 MG TABLET PO SCH (20:33)
[2020-08-14] MEDS: Trolamine Salicylate/Aloe Vera 85 APPL/85 GM TUBE TP PRN (20:42)
[2020-08-15] MEDS: Ibuprofen 800 MG TABLET PO PRN ×2 (05:51→20:39)
[2020-08-15] MEDS: Trolamine Salicylate/Aloe Vera 85 APPL/85 GM TUBE TP PRN (05:52)
[2020-08-15] MEDS: Insulin LISPRO 300 UNITS/3 ML VIAL SUBQ SCH ×4 (07:56→20:38)
[2020-08-15] MEDS: Fluticasone Propionate Nasal 50 MCG/SPRAY BOTTLE NS SCH (07:56)
[2020-08-15] MEDS: Furosemide 40 MG TABLET PO SCH (07:57)
[2020-08-15] MEDS: Cholecalciferol (D-3) 1,000 UNIT (25MCG) TABLET PO SCH (07:57)
[2020-08-15] MEDS: FLUoxetine 20 MG CAPSULE PO SCH (07:57)
[2020-08-15] MEDS: *HR* Metformin 500 MG TABLET PO SCH ×2 (07:57→17:37)
[2020-08-15] MEDS: Loratadine 10 MG TABLET PO SCH (07:57)
[2020-08-15] MEDS: Aspirin Enteric Coated 81 MG Tablet PO SCH (07:57)
[2020-08-15] MEDS: Sennosides/Docusate Sodium TABLET PO SCH ×2 (07:57→20:38)
[2020-08-15] MEDS: amLODIPine 5 MG TABLET PO SCH (07:57)
[2020-08-15] MEDS: Cyanocobalamin (B-12) 1,000 MCG TABLET PO SCH (07:57)
[2020-08-15] MEDS: Gabapentin 300 MG CAPSULE PO SCH ×3 (07:57→20:37)
[2020-08-15] MEDS: lisinopriL 20 MG TABLET PO SCH (07:57)
[2020-08-15] MEDS: Insulin DETEMIR 100 UNIT/ML X5UNITS SUBQ SCH ×2 (08:14→20:38)
[2020-08-15] MEDS: Melatonin 3 MG TABLET PO SCH (20:37)
[2020-08-16] MEDS: Aspirin Enteric Coated 81 MG Tablet PO SCH (08:21)
[2020-08-16] MEDS: FLUoxetine 20 MG CAPSULE PO SCH (08:21)
[2020-08-16] MEDS: Ibuprofen 800 MG TABLET PO PRN ×2 (08:21→21:32)
[2020-08-16] MEDS: Sennosides/Docusate Sodium TABLET PO SCH ×2 (08:21→21:31)
[2020-08-16] MEDS: Cholecalciferol (D-3) 1,000 UNIT (25MCG) TABLET PO SCH (08:21)
[2020-08-16] MEDS: Insulin LISPRO 300 UNITS/3 ML VIAL SUBQ SCH ×4 (08:21→21:33)
[2020-08-16] MEDS: amLODIPine 5 MG TABLET PO SCH (08:22)
[2020-08-16] MEDS: Furosemide 40 MG TABLET PO SCH (08:22)
[2020-08-16] MEDS: *HR* Metformin 500 MG TABLET PO SCH ×2 (08:22→16:29)
[2020-08-16] MEDS: Gabapentin 300 MG CAPSULE PO SCH ×3 (08:22→21:31)
[2020-08-16] MEDS: lisinopriL 20 MG TABLET PO SCH (08:22)
[2020-08-16] MEDS: Cyanocobalamin (B-12) 1,000 MCG TABLET PO SCH (08:22)
[2020-08-16] MEDS: Loratadine 10 MG TABLET PO SCH (08:23)
[2020-08-16] MEDS: Insulin DETEMIR 100 UNIT/ML X5UNITS SUBQ SCH ×2 (08:23→21:33)
[2020-08-16] MEDS: Fluticasone Propionate Nasal 50 MCG/SPRAY BOTTLE NS SCH (08:24)
[2020-08-16] MEDS: Melatonin 3 MG TABLET PO SCH (21:31)
[2020-08-17] MEDS: *HR* Metformin 500 MG TABLET PO SCH ×2 (08:38→16:59)
[2020-08-17] MEDS: Loratadine 10 MG TABLET PO SCH (08:39)
[2020-08-17] MEDS: Gabapentin 300 MG CAPSULE PO SCH ×3 (08:39→19:41)
[2020-08-17] MEDS: Aspirin Enteric Coated 81 MG Tablet PO SCH (08:39)
[2020-08-17] MEDS: amLODIPine 5 MG TABLET PO SCH (08:39)
[2020-08-17] MEDS: Sennosides/Docusate Sodium TABLET PO SCH ×2 (08:40→19:42)
[2020-08-17] MEDS: FLUoxetine 20 MG CAPSULE PO SCH (08:40)
[2020-08-17] MEDS: lisinopriL 20 MG TABLET PO SCH (08:40)
[2020-08-17] MEDS: Furosemide 40 MG TABLET PO SCH (08:40)
[2020-08-17] MEDS: Cholecalciferol (D-3) 1,000 UNIT (25MCG) TABLET PO SCH (08:40)
[2020-08-17] MEDS: Cyanocobalamin (B-12) 1,000 MCG TABLET PO SCH (08:40)
[2020-08-17] MEDS: Fluticasone Propionate Nasal 50 MCG/SPRAY BOTTLE NS SCH (08:40)
[2020-08-17] MEDS: Insulin DETEMIR 100 UNIT/ML X5UNITS SUBQ SCH ×2 (08:41→19:43)
[2020-08-17] MEDS: Insulin LISPRO 300 UNITS/3 ML VIAL SUBQ SCH ×4 (08:48→19:42)
[2020-08-17] MEDS: (Dulaglutide [Trulicity] 1.5 MG/0.5 ML Pen.Injctr) SQ SCH (09:40)
[2020-08-17] MEDS: Melatonin 3 MG TABLET PO SCH (19:40)
[2020-08-17] MEDS: Ibuprofen 800 MG TABLET PO PRN (22:18)
[2020-08-18] MEDS: Insulin LISPRO 300 UNITS/3 ML VIAL SUBQ SCH ×4 (07:15→21:58)
[2020-08-18] MEDS: Insulin DETEMIR 100 UNIT/ML X5UNITS SUBQ SCH ×2 (09:12→21:59)
[2020-08-18] MEDS: Aspirin Enteric Coated 81 MG Tablet PO SCH (09:13)
[2020-08-18] MEDS: *HR* Metformin 500 MG TABLET PO SCH ×2 (09:13→16:12)
[2020-08-18] MEDS: lisinopriL 20 MG TABLET PO SCH (09:13)
[2020-08-18] MEDS: FLUoxetine 20 MG CAPSULE PO SCH (09:13)
[2020-08-18] MEDS: amLODIPine 5 MG TABLET PO SCH (09:13)
[2020-08-18] MEDS: Gabapentin 300 MG CAPSULE PO SCH ×3 (09:14→21:59)
[2020-08-18] MEDS: Cholecalciferol (D-3) 1,000 UNIT (25MCG) TABLET PO SCH (09:14)
[2020-08-18] MEDS: Loratadine 10 MG TABLET PO SCH (09:14)
[2020-08-18] MEDS: Cyanocobalamin (B-12) 1,000 MCG TABLET PO SCH (09:14)
[2020-08-18] MEDS: Fluticasone Propionate Nasal 50 MCG/SPRAY BOTTLE NS SCH (09:17)
[2020-08-18] MEDS: Furosemide 40 MG TABLET PO SCH (09:18)
[2020-08-18] MEDS: Sennosides/Docusate Sodium TABLET PO SCH ×2 (09:18→21:57)
[2020-08-18] MEDS: Melatonin 3 MG TABLET PO SCH (21:58)
[2020-08-18] MEDS: Ibuprofen 800 MG TABLET PO PRN (22:06)
[2020-08-19] MEDS: Insulin LISPRO 300 UNITS/3 ML VIAL SUBQ SCH ×4 (07:57→20:22)
[2020-08-19] MEDS: amLODIPine 5 MG TABLET PO SCH (08:05)
[2020-08-19] MEDS: lisinopriL 20 MG TABLET PO SCH (08:05)
[2020-08-19] MEDS: Cholecalciferol (D-3) 1,000 UNIT (25MCG) TABLET PO SCH (08:05)
[2020-08-19] MEDS: FLUoxetine 20 MG CAPSULE PO SCH (08:05)
[2020-08-19] MEDS: Cyanocobalamin (B-12) 1,000 MCG TABLET PO SCH (08:06)
[2020-08-19] MEDS: Loratadine 10 MG TABLET PO SCH (08:06)
[2020-08-19] MEDS: Gabapentin 300 MG CAPSULE PO SCH ×3 (08:06→20:17)
[2020-08-19] MEDS: Aspirin Enteric Coated 81 MG Tablet PO SCH (08:06)
[2020-08-19] MEDS: *HR* Metformin 500 MG TABLET PO SCH ×2 (08:07→17:19)
[2020-08-19] MEDS: Fluticasone Propionate Nasal 50 MCG/SPRAY BOTTLE NS SCH (08:07)
[2020-08-19] MEDS: Sennosides/Docusate Sodium TABLET PO SCH ×2 (08:07→20:23)
[2020-08-19] MEDS: Furosemide 40 MG TABLET PO SCH (08:07)
[2020-08-19] MEDS: Insulin DETEMIR 100 UNIT/ML X5UNITS SUBQ SCH ×2 (08:10→20:18)
[2020-08-19] MEDS: Ibuprofen 800 MG TABLET PO PRN (20:17)
[2020-08-19] MEDS: Melatonin 3 MG TABLET PO SCH (20:17)
[2020-08-20 07:29] LABS: Basophils % 0.4 %; Eosinophils # 0.2 K/mcL (0.0-0.6); Eosinophils % 2.7 %; Hematocrit 32.9 % (35.3-44.9); Hemoglobin 10.8 g/dL (11.5-15.4); Immature Granulocytes % 0.6 % (0-4); Lymphocytes # 2.2 K/mcL (0.6-4.6); Lymphocytes % 30.8 %; Mean Corpuscular HGB Conc 32.8 g/dL (31.6-35.5); Mean Corpuscular Hemoglobin 29.8 pg (28.0-33.3); Mean Corpuscular Volume 90.9 fL (83.0-100.0); Mean Platelet Volume 10.3 fL (9.4-12.4); Monocytes # 0.3 K/mcL (0.0-1.3); Monocytes % 4.7 %; Neutrophils # 4.2 K/mcL (1.6-8.9); Platelet Count 244 K/mcL (140-400); Red Blood Count 3.62 M/mcL (3.82-4.97); Red Cell Distribution Width 14.1 % (11.5-14.5); Segmented Neutrophils % 60.8 %
[2020-08-20 07:58] LABS: BUN/Creatinine Ratio 41 (6-26); Blood Urea Nitrogen 38 mg/dL (8-23); Calcium 8.5 mg/dL (8.6-10.3); Carbon Dioxide 29 mEq/L (23-29); Chloride 105 mEq/L (98-107); Glucose 97 mg/dL (70-105); Osmolality,Calculated 303 (280-300); Potassium 3.7 mEq/L (3.5-5.1); Sodium 142 mEq/L (136-145); eGFR For African Americans > 60 (> 60); eGFR For Non-African Americans > 60 (> 60)
[2020-08-20] MEDS: Insulin LISPRO 300 UNITS/3 ML VIAL SUBQ SCH ×4 (09:01→20:30)
[2020-08-20] MEDS: Aspirin Enteric Coated 81 MG Tablet PO SCH (09:10)
[2020-08-20] MEDS: Cyanocobalamin (B-12) 1,000 MCG TABLET PO SCH (09:10)
[2020-08-20] MEDS: *HR* Metformin 500 MG TABLET PO SCH ×2 (09:10→16:21)
[2020-08-20] MEDS: amLODIPine 5 MG TABLET PO SCH (09:10)
[2020-08-20] MEDS: Gabapentin 300 MG CAPSULE PO SCH ×3 (09:10→20:29)
[2020-08-20] MEDS: Sennosides/Docusate Sodium TABLET PO SCH ×2 (09:10→20:29)
[2020-08-20] MEDS: lisinopriL 20 MG TABLET PO SCH (09:11)
[2020-08-20] MEDS: Insulin DETEMIR 100 UNIT/ML X5UNITS SUBQ SCH ×2 (09:11→20:30)
[2020-08-20] MEDS: Loratadine 10 MG TABLET PO SCH (09:11)
[2020-08-20] MEDS: Cholecalciferol (D-3) 1,000 UNIT (25MCG) TABLET PO SCH (09:11)
[2020-08-20] MEDS: Furosemide 40 MG TABLET PO SCH (09:11)
[2020-08-20] MEDS: FLUoxetine 20 MG CAPSULE PO SCH (09:11)
[2020-08-20] MEDS: Fluticasone Propionate Nasal 50 MCG/SPRAY BOTTLE NS SCH (09:12)
[2020-08-20] MEDS: Melatonin 3 MG TABLET PO SCH (20:30)
[2020-08-21] MEDS: Insulin LISPRO 300 UNITS/3 ML VIAL SUBQ SCH ×4 (07:36→21:12)
[2020-08-21] MEDS: Sennosides/Docusate Sodium TABLET PO SCH ×2 (08:40→21:11)
[2020-08-21] MEDS: Aspirin Enteric Coated 81 MG Tablet PO SCH (08:40)
[2020-08-21] MEDS: Cyanocobalamin (B-12) 1,000 MCG TABLET PO SCH (08:40)
[2020-08-21] MEDS: amLODIPine 5 MG TABLET PO SCH (08:40)
[2020-08-21] MEDS: FLUoxetine 20 MG CAPSULE PO SCH (08:40)
[2020-08-21] MEDS: lisinopriL 20 MG TABLET PO SCH (08:40)
[2020-08-21] MEDS: Gabapentin 300 MG CAPSULE PO SCH ×3 (08:40→21:11)
[2020-08-21] MEDS: *HR* Metformin 500 MG TABLET PO SCH ×2 (08:41→17:00)
[2020-08-21] MEDS: Insulin DETEMIR 100 UNIT/ML X5UNITS SUBQ SCH ×2 (08:41→21:11)
[2020-08-21] MEDS: Fluticasone Propionate Nasal 50 MCG/SPRAY BOTTLE NS SCH (08:41)
[2020-08-21] MEDS: Cholecalciferol (D-3) 1,000 UNIT (25MCG) TABLET PO SCH (08:41)
[2020-08-21] MEDS: Furosemide 40 MG TABLET PO SCH (08:41)
[2020-08-21] MEDS: Loratadine 10 MG TABLET PO SCH (08:41)
[2020-08-21] MEDS: Ibuprofen 800 MG TABLET PO PRN (10:55)
[2020-08-21] MEDS: Melatonin 3 MG TABLET PO SCH (21:11)
[2020-08-22] MEDS: Insulin LISPRO 300 UNITS/3 ML VIAL SUBQ SCH ×4 (08:08→20:39)
[2020-08-22] MEDS: Sennosides/Docusate Sodium TABLET PO SCH ×2 (08:47→20:39)
[2020-08-22] MEDS: Aspirin Enteric Coated 81 MG Tablet PO SCH (08:47)
[2020-08-22] MEDS: Gabapentin 300 MG CAPSULE PO SCH ×3 (08:47→20:39)
[2020-08-22] MEDS: FLUoxetine 20 MG CAPSULE PO SCH (08:47)
[2020-08-22] MEDS: amLODIPine 5 MG TABLET PO SCH (08:48)
[2020-08-22] MEDS: Furosemide 40 MG TABLET PO SCH (08:48)
[2020-08-22] MEDS: Cholecalciferol (D-3) 1,000 UNIT (25MCG) TABLET PO SCH (08:48)
[2020-08-22] MEDS: Insulin DETEMIR 100 UNIT/ML X5UNITS SUBQ SCH ×2 (08:48→20:39)
[2020-08-22] MEDS: Cyanocobalamin (B-12) 1,000 MCG TABLET PO SCH (08:48)
[2020-08-22] MEDS: *HR* Metformin 500 MG TABLET PO SCH ×2 (08:48→16:54)
[2020-08-22] MEDS: Loratadine 10 MG TABLET PO SCH (08:48)
[2020-08-22] MEDS: lisinopriL 20 MG TABLET PO SCH (08:48)
[2020-08-22] MEDS: Fluticasone Propionate Nasal 50 MCG/SPRAY BOTTLE NS SCH (08:48)
[2020-08-22] MEDS: Melatonin 3 MG TABLET PO SCH (20:39)
[2020-08-23] MEDS: Insulin LISPRO 300 UNITS/3 ML VIAL SUBQ SCH ×4 (09:11→22:09)
[2020-08-23] MEDS: Insulin DETEMIR 100 UNIT/ML X5UNITS SUBQ SCH ×2 (09:45→22:08)
[2020-08-23] MEDS: lisinopriL 20 MG TABLET PO SCH (09:45)
[2020-08-23] MEDS: Aspirin Enteric Coated 81 MG Tablet PO SCH (09:45)
[2020-08-23] MEDS: Sennosides/Docusate Sodium TABLET PO SCH ×2 (09:45→22:07)
[2020-08-23] MEDS: *HR* Metformin 500 MG TABLET PO SCH ×2 (09:45→17:09)
[2020-08-23] MEDS: Cholecalciferol (D-3) 1,000 UNIT (25MCG) TABLET PO SCH (09:46)
[2020-08-23] MEDS: amLODIPine 5 MG TABLET PO SCH (09:46)
[2020-08-23] MEDS: Loratadine 10 MG TABLET PO SCH (09:46)
[2020-08-23] MEDS: Gabapentin 300 MG CAPSULE PO SCH ×3 (09:46→22:08)
[2020-08-23] MEDS: Fluticasone Propionate Nasal 50 MCG/SPRAY BOTTLE NS SCH (09:46)
[2020-08-23] MEDS: FLUoxetine 20 MG CAPSULE PO SCH (09:46)
[2020-08-23] MEDS: Cyanocobalamin (B-12) 1,000 MCG TABLET PO SCH (09:46)
[2020-08-23] MEDS: Furosemide 40 MG TABLET PO SCH (09:46)
[2020-08-23] MEDS: Ibuprofen 800 MG TABLET PO PRN (19:39)
[2020-08-23] MEDS: Melatonin 3 MG TABLET PO SCH (22:07)
[2020-08-24] MEDS: Insulin LISPRO 300 UNITS/3 ML VIAL SUBQ SCH ×4 (07:36→20:58)
[2020-08-24] MEDS: Sennosides/Docusate Sodium TABLET PO SCH ×2 (08:40→20:57)
[2020-08-24] MEDS: Gabapentin 300 MG CAPSULE PO SCH ×3 (08:40→20:57)
[2020-08-24] MEDS: *HR* Metformin 500 MG TABLET PO SCH ×2 (08:40→16:12)
[2020-08-24] MEDS: Loratadine 10 MG TABLET PO SCH (08:40)
[2020-08-24] MEDS: Fluticasone Propionate Nasal 50 MCG/SPRAY BOTTLE NS SCH (08:40)
[2020-08-24] MEDS: amLODIPine 5 MG TABLET PO SCH (08:40)
[2020-08-24] MEDS: Insulin DETEMIR 100 UNIT/ML X5UNITS SUBQ SCH ×2 (08:41→20:59)
[2020-08-24] MEDS: FLUoxetine 20 MG CAPSULE PO SCH (08:41)
[2020-08-24] MEDS: Cholecalciferol (D-3) 1,000 UNIT (25MCG) TABLET PO SCH (08:41)
[2020-08-24] MEDS: lisinopriL 20 MG TABLET PO SCH (08:41)
[2020-08-24] MEDS: (Dulaglutide [Trulicity] 1.5 MG/0.5 ML Pen.Injctr) SQ SCH (08:41)
[2020-08-24] MEDS: Cyanocobalamin (B-12) 1,000 MCG TABLET PO SCH (08:41)
[2020-08-24] MEDS: Aspirin Enteric Coated 81 MG Tablet PO SCH (08:41)
[2020-08-24] MEDS: Furosemide 40 MG TABLET PO SCH (08:41)
[2020-08-24] MEDS: Melatonin 3 MG TABLET PO SCH (20:57)
[2020-08-25] MEDS: Ibuprofen 800 MG TABLET PO PRN (05:35)
[2020-08-25] MEDS: Insulin LISPRO 300 UNITS/3 ML VIAL SUBQ SCH ×4 (07:14→21:22)
[2020-08-25] MEDS: lisinopriL 20 MG TABLET PO SCH (08:22)
[2020-08-25] MEDS: Aspirin Enteric Coated 81 MG Tablet PO SCH (08:22)
[2020-08-25] MEDS: FLUoxetine 20 MG CAPSULE PO SCH (08:22)
[2020-08-25] MEDS: Sennosides/Docusate Sodium TABLET PO SCH ×2 (08:22→21:19)
[2020-08-25] MEDS: Gabapentin 300 MG CAPSULE PO SCH ×3 (08:22→21:21)
[2020-08-25] MEDS: amLODIPine 5 MG TABLET PO SCH (08:22)
[2020-08-25] MEDS: Cholecalciferol (D-3) 1,000 UNIT (25MCG) TABLET PO SCH (08:22)
[2020-08-25] MEDS: Insulin DETEMIR 100 UNIT/ML X5UNITS SUBQ SCH ×2 (08:23→21:26)
[2020-08-25] MEDS: *HR* Metformin 500 MG TABLET PO SCH ×2 (08:23→16:27)
[2020-08-25] MEDS: Loratadine 10 MG TABLET PO SCH (08:23)
[2020-08-25] MEDS: Cyanocobalamin (B-12) 1,000 MCG TABLET PO SCH (08:23)
[2020-08-25] MEDS: Furosemide 40 MG TABLET PO SCH (08:23)
[2020-08-25] MEDS: Fluticasone Propionate Nasal 50 MCG/SPRAY BOTTLE NS SCH (08:24)
[2020-08-25] MEDS: Melatonin 3 MG TABLET PO SCH (21:20)
[2020-08-26] MEDS: Insulin LISPRO 300 UNITS/3 ML VIAL SUBQ SCH ×4 (08:05→21:26)
[2020-08-26] MEDS: Aspirin Enteric Coated 81 MG Tablet PO SCH (08:52)
[2020-08-26] MEDS: lisinopriL 20 MG TABLET PO SCH (08:52)
[2020-08-26] MEDS: Gabapentin 300 MG CAPSULE PO SCH ×3 (08:53→21:25)
[2020-08-26] MEDS: Cyanocobalamin (B-12) 1,000 MCG TABLET PO SCH (08:53)
[2020-08-26] MEDS: Sennosides/Docusate Sodium TABLET PO SCH ×2 (08:53→21:26)
[2020-08-26] MEDS: Cholecalciferol (D-3) 1,000 UNIT (25MCG) TABLET PO SCH (08:53)
[2020-08-26] MEDS: Furosemide 40 MG TABLET PO SCH (08:53)
[2020-08-26] MEDS: FLUoxetine 20 MG CAPSULE PO SCH (08:53)
[2020-08-26] MEDS: amLODIPine 5 MG TABLET PO SCH (08:53)
[2020-08-26] MEDS: Loratadine 10 MG TABLET PO SCH (08:53)
[2020-08-26] MEDS: *HR* Metformin 500 MG TABLET PO SCH ×2 (08:53→18:04)
[2020-08-26] MEDS: Insulin DETEMIR 100 UNIT/ML X5UNITS SUBQ SCH ×2 (09:49→21:26)
[2020-08-26] MEDS: Fluticasone Propionate Nasal 50 MCG/SPRAY BOTTLE NS SCH (09:51)
[2020-08-26] MEDS: Melatonin 3 MG TABLET PO SCH (21:26)
[2020-08-27] MEDS: Insulin LISPRO 300 UNITS/3 ML VIAL SUBQ SCH ×4 (09:05→21:13)
[2020-08-27] MEDS: Insulin DETEMIR 100 UNIT/ML X5UNITS SUBQ SCH ×2 (09:06→22:00)
[2020-08-27] MEDS: Aspirin Enteric Coated 81 MG Tablet PO SCH (09:06)
[2020-08-27] MEDS: Gabapentin 300 MG CAPSULE PO SCH ×3 (09:07→22:00)
[2020-08-27] MEDS: Cholecalciferol (D-3) 1,000 UNIT (25MCG) TABLET PO SCH (09:07)
[2020-08-27] MEDS: Furosemide 40 MG TABLET PO SCH (09:07)
[2020-08-27] MEDS: Loratadine 10 MG TABLET PO SCH (09:07)
[2020-08-27] MEDS: *HR* Metformin 500 MG TABLET PO SCH ×2 (09:07→17:12)
[2020-08-27] MEDS: amLODIPine 5 MG TABLET PO SCH (09:07)
[2020-08-27] MEDS: lisinopriL 20 MG TABLET PO SCH (09:07)
[2020-08-27] MEDS: Fluticasone Propionate Nasal 50 MCG/SPRAY BOTTLE NS SCH (09:08)
[2020-08-27] MEDS: Cyanocobalamin (B-12) 1,000 MCG TABLET PO SCH (09:08)
[2020-08-27] MEDS: FLUoxetine 20 MG CAPSULE PO SCH (09:08)
[2020-08-27] MEDS: Sennosides/Docusate Sodium TABLET PO SCH ×2 (09:08→22:00)
[2020-08-27] MEDS: Ibuprofen 800 MG TABLET PO PRN (09:16)
[2020-08-27] MEDS: Melatonin 3 MG TABLET PO SCH (22:00)
[2020-08-28] MEDS: Ibuprofen 800 MG TABLET PO PRN (03:04)
[2020-08-28] MEDS: Trolamine Salicylate/Aloe Vera 85 APPL/85 GM TUBE TP PRN (03:05)
[2020-08-28] MEDS: Insulin LISPRO 300 UNITS/3 ML VIAL SUBQ SCH ×4 (07:55→19:55)
[2020-08-28] MEDS: Fluticasone Propionate Nasal 50 MCG/SPRAY BOTTLE NS SCH (08:28)
[2020-08-28] MEDS: lisinopriL 20 MG TABLET PO SCH (08:30)
[2020-08-28] MEDS: Cholecalciferol (D-3) 1,000 UNIT (25MCG) TABLET PO SCH (08:30)
[2020-08-28] MEDS: Aspirin Enteric Coated 81 MG Tablet PO SCH (08:30)
[2020-08-28] MEDS: Sennosides/Docusate Sodium TABLET PO SCH ×2 (08:30→20:44)
[2020-08-28] MEDS: Gabapentin 300 MG CAPSULE PO SCH ×3 (08:30→20:44)
[2020-08-28] MEDS: amLODIPine 5 MG TABLET PO SCH (08:31)
[2020-08-28] MEDS: Cyanocobalamin (B-12) 1,000 MCG TABLET PO SCH (08:31)
[2020-08-28] MEDS: Furosemide 40 MG TABLET PO SCH (08:31)
[2020-08-28] MEDS: FLUoxetine 20 MG CAPSULE PO SCH (08:31)
[2020-08-28] MEDS: *HR* Metformin 500 MG TABLET PO SCH ×2 (08:31→16:58)
[2020-08-28] MEDS: Loratadine 10 MG TABLET PO SCH (08:31)
[2020-08-28] MEDS: Insulin DETEMIR 100 UNIT/ML X5UNITS SUBQ SCH ×2 (08:42→20:44)
[2020-08-28] MEDS: Melatonin 3 MG TABLET PO SCH (20:44)
[2020-08-29] MEDS: Insulin LISPRO 300 UNITS/3 ML VIAL SUBQ SCH ×4 (07:40→19:35)
[2020-08-29] MEDS: amLODIPine 5 MG TABLET PO SCH (09:25)
[2020-08-29] MEDS: Insulin DETEMIR 100 UNIT/ML X5UNITS SUBQ SCH ×2 (09:25→19:40)
[2020-08-29] MEDS: lisinopriL 20 MG TABLET PO SCH (09:25)
[2020-08-29] MEDS: Gabapentin 300 MG CAPSULE PO SCH ×3 (09:25→19:34)
[2020-08-29] MEDS: Aspirin Enteric Coated 81 MG Tablet PO SCH (09:25)
[2020-08-29] MEDS: Cyanocobalamin (B-12) 1,000 MCG TABLET PO SCH (09:25)
[2020-08-29] MEDS: Sennosides/Docusate Sodium TABLET PO SCH ×2 (09:25→19:34)
[2020-08-29] MEDS: FLUoxetine 20 MG CAPSULE PO SCH (09:26)
[2020-08-29] MEDS: *HR* Metformin 500 MG TABLET PO SCH ×2 (09:26→15:42)
[2020-08-29] MEDS: Cholecalciferol (D-3) 1,000 UNIT (25MCG) TABLET PO SCH (09:26)
[2020-08-29] MEDS: Fluticasone Propionate Nasal 50 MCG/SPRAY BOTTLE NS SCH (09:26)
[2020-08-29] MEDS: Furosemide 40 MG TABLET PO SCH (09:26)
[2020-08-29] MEDS: Loratadine 10 MG TABLET PO SCH (09:26)
[2020-08-29] MEDS: Melatonin 3 MG TABLET PO SCH (19:34)
[2020-08-30] MEDS: FLUoxetine 20 MG CAPSULE PO SCH (09:18)
[2020-08-30] MEDS: lisinopriL 20 MG TABLET PO SCH (09:19)
[2020-08-30] MEDS: Aspirin Enteric Coated 81 MG Tablet PO SCH (09:19)
[2020-08-30] MEDS: Sennosides/Docusate Sodium TABLET PO SCH ×2 (09:19→21:22)
[2020-08-30] MEDS: Cholecalciferol (D-3) 1,000 UNIT (25MCG) TABLET PO SCH (09:22)
[2020-08-30] MEDS: *HR* Metformin 500 MG TABLET PO SCH ×2 (09:24→16:23)
[2020-08-30] MEDS: Loratadine 10 MG TABLET PO SCH (09:25)
[2020-08-30] MEDS: Cyanocobalamin (B-12) 1,000 MCG TABLET PO SCH (09:25)
[2020-08-30] MEDS: Furosemide 40 MG TABLET PO SCH (09:26)
[2020-08-30] MEDS: amLODIPine 5 MG TABLET PO SCH (09:27)
[2020-08-30] MEDS: Gabapentin 300 MG CAPSULE PO SCH ×3 (09:27→21:23)
[2020-08-30] MEDS: Insulin DETEMIR 100 UNIT/ML X5UNITS SUBQ SCH ×2 (09:34→21:24)
[2020-08-30] MEDS: Insulin LISPRO 300 UNITS/3 ML VIAL SUBQ SCH ×4 (09:59→21:24)
[2020-08-30] MEDS: Fluticasone Propionate Nasal 50 MCG/SPRAY BOTTLE NS SCH (11:57)
[2020-08-30] MEDS: Melatonin 3 MG TABLET PO SCH (21:23)
[2020-08-31] MEDS: Ibuprofen 800 MG TABLET PO PRN ×2 (06:00→21:19)
[2020-08-31] MEDS: Insulin LISPRO 300 UNITS/3 ML VIAL SUBQ SCH ×4 (07:53→21:21)
[2020-08-31] MEDS: (Dulaglutide [Trulicity] 1.5 MG/0.5 ML Pen.Injctr) SQ SCH (08:02)
[2020-08-31] MEDS: Insulin DETEMIR 100 UNIT/ML X5UNITS SUBQ SCH ×2 (08:07→21:20)
[2020-08-31] MEDS: Gabapentin 300 MG CAPSULE PO SCH ×3 (08:07→21:19)
[2020-08-31] MEDS: amLODIPine 5 MG TABLET PO SCH (08:07)
[2020-08-31] MEDS: FLUoxetine 20 MG CAPSULE PO SCH (08:07)
[2020-08-31] MEDS: Sennosides/Docusate Sodium TABLET PO SCH ×2 (08:07→21:19)
[2020-08-31] MEDS: Cyanocobalamin (B-12) 1,000 MCG TABLET PO SCH (08:08)
[2020-08-31] MEDS: Cholecalciferol (D-3) 1,000 UNIT (25MCG) TABLET PO SCH (08:08)
[2020-08-31] MEDS: lisinopriL 20 MG TABLET PO SCH (08:08)
[2020-08-31] MEDS: Furosemide 40 MG TABLET PO SCH (08:08)
[2020-08-31] MEDS: Loratadine 10 MG TABLET PO SCH (08:08)
[2020-08-31] MEDS: Aspirin Enteric Coated 81 MG Tablet PO SCH (08:08)
[2020-08-31] MEDS: *HR* Metformin 500 MG TABLET PO SCH ×2 (08:08→17:05)
[2020-08-31] MEDS: Fluticasone Propionate Nasal 50 MCG/SPRAY BOTTLE NS SCH (08:08)
[2020-08-31] MEDS: Melatonin 3 MG TABLET PO SCH (21:22)
[2020-09-01] MEDS: Insulin LISPRO 300 UNITS/3 ML VIAL SUBQ SCH ×4 (08:27→20:54)
[2020-09-01] MEDS: FLUoxetine 20 MG CAPSULE PO SCH (08:34)
[2020-09-01] MEDS: Sennosides/Docusate Sodium TABLET PO SCH ×2 (08:34→20:54)
[2020-09-01] MEDS: Aspirin Enteric Coated 81 MG Tablet PO SCH (08:34)
[2020-09-01] MEDS: Cholecalciferol (D-3) 1,000 UNIT (25MCG) TABLET PO SCH (08:34)
[2020-09-01] MEDS: *HR* Metformin 500 MG TABLET PO SCH ×2 (08:34→17:02)
[2020-09-01] MEDS: Cyanocobalamin (B-12) 1,000 MCG TABLET PO SCH (08:35)
[2020-09-01] MEDS: lisinopriL 20 MG TABLET PO SCH (08:35)
[2020-09-01] MEDS: amLODIPine 5 MG TABLET PO SCH (08:35)
[2020-09-01] MEDS: Gabapentin 300 MG CAPSULE PO SCH ×3 (08:35→20:51)
[2020-09-01] MEDS: Loratadine 10 MG TABLET PO SCH (08:36)
[2020-09-01] MEDS: Insulin DETEMIR 100 UNIT/ML X5UNITS SUBQ SCH ×2 (08:36→20:53)
[2020-09-01] MEDS: Furosemide 40 MG TABLET PO SCH (08:36)
[2020-09-01] MEDS: Fluticasone Propionate Nasal 50 MCG/SPRAY BOTTLE NS SCH (08:38)
[2020-09-01] MEDS: Ibuprofen 800 MG TABLET PO PRN (20:52)
[2020-09-01] MEDS: Melatonin 3 MG TABLET PO SCH (20:52)
[2020-09-02] MEDS: Insulin LISPRO 300 UNITS/3 ML VIAL SUBQ SCH ×4 (07:38→21:09)
[2020-09-02] MEDS: Cholecalciferol (D-3) 1,000 UNIT (25MCG) TABLET PO SCH (07:59)
[2020-09-02] MEDS: Furosemide 40 MG TABLET PO SCH (07:59)
[2020-09-02] MEDS: amLODIPine 5 MG TABLET PO SCH (07:59)
[2020-09-02] MEDS: Loratadine 10 MG TABLET PO SCH (07:59)
[2020-09-02] MEDS: Aspirin Enteric Coated 81 MG Tablet PO SCH (07:59)
[2020-09-02] MEDS: Cyanocobalamin (B-12) 1,000 MCG TABLET PO SCH (07:59)
[2020-09-02] MEDS: Gabapentin 300 MG CAPSULE PO SCH ×3 (07:59→21:09)
[2020-09-02] MEDS: lisinopriL 20 MG TABLET PO SCH (07:59)
[2020-09-02] MEDS: FLUoxetine 20 MG CAPSULE PO SCH (07:59)
[2020-09-02] MEDS: Sennosides/Docusate Sodium TABLET PO SCH ×2 (07:59→21:09)
[2020-09-02] MEDS: *HR* Metformin 500 MG TABLET PO SCH ×2 (07:59→17:05)
[2020-09-02] MEDS: Fluticasone Propionate Nasal 50 MCG/SPRAY BOTTLE NS SCH (08:02)
[2020-09-02] MEDS: Insulin DETEMIR 100 UNIT/ML X5UNITS SUBQ SCH ×2 (08:03→21:10)
[2020-09-02 11:12] LABS: Basophils % 0.3 %; Eosinophils # 0.2 K/mcL (0.0-0.6); Eosinophils % 2.1 %; Hematocrit 33.3 % (35.3-44.9); Immature Granulocytes % 0.3 % (0-4); Lymphocytes # 1.9 K/mcL (0.6-4.6); Lymphocytes % 27.1 %; Mean Corpuscular Hemoglobin 29.9 pg (28.0-33.3); Mean Corpuscular Volume 90.5 fL (83.0-100.0); Mean Platelet Volume 9.8 fL (9.4-12.4); Monocytes # 0.3 K/mcL (0.0-1.3); Monocytes % 3.5 %; Neutrophils # 4.8 K/mcL (1.6-8.9); Platelet Count 285 K/mcL (140-400); Red Blood Count 3.68 M/mcL (3.82-4.97); Red Cell Distribution Width 14.1 % (11.5-14.5); Segmented Neutrophils % 66.7 %; White Blood Count 7.1 K/mcL (4.3-11.1)
[2020-09-02 11:34] LABS: BUN/Creatinine Ratio 22 (6-26); Blood Urea Nitrogen 23 mg/dL (8-23); Calcium 8.6 mg/dL (8.6-10.3); Carbon Dioxide 29 mEq/L (23-29); Chloride 99 mEq/L (98-107); Glucose 152 mg/dL (70-105); Osmolality,Calculated 295 (280-300); Potassium 3.8 mEq/L (3.5-5.1); Sodium 139 mEq/L (136-145); eGFR For African Americans > 60 (> 60); eGFR For Non-African Americans 53 (> 60)
[2020-09-02] MEDS: Ibuprofen 800 MG TABLET PO PRN (21:08)
[2020-09-02] MEDS: Melatonin 3 MG TABLET PO SCH (21:08)
[2020-09-03] MEDS: Ondansetron ODT 4 MG TAB.RAPDIS SL PRN (02:55)
[2020-09-03] MEDS: Insulin LISPRO 300 UNITS/3 ML VIAL SUBQ SCH ×4 (07:06→21:04)
[2020-09-03] MEDS: Gabapentin 300 MG CAPSULE PO SCH ×3 (08:32→21:01)
[2020-09-03] MEDS: *HR* Metformin 500 MG TABLET PO SCH ×2 (08:32→16:28)
[2020-09-03] MEDS: Furosemide 40 MG TABLET PO SCH (08:33)
[2020-09-03] MEDS: Aspirin Enteric Coated 81 MG Tablet PO SCH (08:33)
[2020-09-03] MEDS: lisinopriL 20 MG TABLET PO SCH (08:33)
[2020-09-03] MEDS: Insulin DETEMIR 100 UNIT/ML X5UNITS SUBQ SCH ×2 (08:33→21:05)
[2020-09-03] MEDS: FLUoxetine 20 MG CAPSULE PO SCH (08:33)
[2020-09-03] MEDS: Loratadine 10 MG TABLET PO SCH (08:33)
[2020-09-03] MEDS: Cholecalciferol (D-3) 1,000 UNIT (25MCG) TABLET PO SCH (08:33)
[2020-09-03] MEDS: Cyanocobalamin (B-12) 1,000 MCG TABLET PO SCH (08:33)
[2020-09-03] MEDS: amLODIPine 5 MG TABLET PO SCH (08:33)
[2020-09-03] MEDS: Fluticasone Propionate Nasal 50 MCG/SPRAY BOTTLE NS SCH (08:34)
[2020-09-03] MEDS: Sennosides/Docusate Sodium TABLET PO SCH ×2 (08:34→21:02)
[2020-09-03] MEDS: Ibuprofen 800 MG TABLET PO PRN ×2 (08:40→16:27)
[2020-09-03] MEDS: Melatonin 3 MG TABLET PO SCH (21:02)
[2020-09-04 06:45] VITALS: BP 135/80
[2020-09-04] MEDS: Loratadine 10 MG TABLET PO SCH (08:58)
[2020-09-04] MEDS: amLODIPine 5 MG TABLET PO SCH (08:58)
[2020-09-04] MEDS: Cyanocobalamin (B-12) 1,000 MCG TABLET PO SCH (08:58)
[2020-09-04] MEDS: Fluticasone Propionate Nasal 50 MCG/SPRAY BOTTLE NS SCH (08:58)
[2020-09-04] MEDS: Cholecalciferol (D-3) 1,000 UNIT (25MCG) TABLET PO SCH (08:58)
[2020-09-04] MEDS: *HR* Metformin 500 MG TABLET PO SCH (08:58)
[2020-09-04] MEDS: lisinopriL 20 MG TABLET PO SCH (08:59)
[2020-09-04] MEDS: Aspirin Enteric Coated 81 MG Tablet PO SCH (08:59)
[2020-09-04] MEDS: FLUoxetine 20 MG CAPSULE PO SCH (08:59)
[2020-09-04] MEDS: Gabapentin 300 MG CAPSULE PO SCH (08:59)
[2020-09-04] MEDS: Insulin LISPRO 300 UNITS/3 ML VIAL SUBQ SCH (08:59)
[2020-09-04] MEDS: Sennosides/Docusate Sodium TABLET PO SCH (08:59)
[2020-09-04] MEDS: Furosemide 40 MG TABLET PO SCH (09:00)
[2020-09-04] MEDS: Insulin DETEMIR 100 UNIT/ML X5UNITS SUBQ SCH (09:04)
== END 2020-09-04 10:34 | disposition home or self-care (01) | DRG 57 ==
LOC: INPPIK 17:41
PROVIDERS: ADMIT Family Medicine; ATTEND Family Medicine